=== PATIENT | female | born 1985 | race Caucasian/White ===

== ENCOUNTER → 2020-06-18 08:23 | Outpatient (BNVA) | payer OTHER, SELFPAY | PROVIDERS: PCP Internal Medicine; Visit Provider Dietitian, Registered | DX: Z76.89 Persons encountering health services in other specified circumstances (principal) ==

== ENCOUNTER → 2020-06-28 11:29 | Outpatient (BNVA) | payer OTHER, SELFPAY | PROVIDERS: PCP Internal Medicine; Referring Provider Internal Medicine; Visit Provider Surgery | DX: E66.9 Obesity, unspecified (principal); Z68.36 Body mass index [BMI] 36.0-36.9, adult | CPT/HCPCS: 99214 ==

== ENCOUNTER → 2020-07-28 14:40 | Outpatient (BNVA) | payer OTHER, SELFPAY | PROVIDERS: PCP Plastic Surgery; Visit Provider Physician Assistant | DX: E66.9 Obesity, unspecified (principal); Z68.34 Body mass index [BMI] 34.0-34.9, adult | CPT/HCPCS: 99212 ==

== ENCOUNTER → 2020-08-24 15:57 | Outpatient (BNVA) | payer OTHER, SELFPAY | PROVIDERS: PCP Plastic Surgery; Visit Provider Surgery | DX: Z01.818 Encounter for other preprocedural examination (principal); E66.9 Obesity, unspecified; Z68.34 Body mass index [BMI] 34.0-34.9, adult; R06.02 Shortness of breath | CPT/HCPCS: 99212 ==

== ENCOUNTER 2020-08-27 12:03 | Outpatient (REF) | payer OTHER, SELFPAY ==
[2020-08-27 12:39] LABS: MANUAL DIFF FLAG NO
[2020-08-27 12:44] LABS: Basophils Absolute Auto 0.1 X10*3/uL (0.0-0.2); Basophils Percent Auto 0.5 % (0-2); Eosinophils Absolute Auto 0.1 X10*3/uL (0.0-0.4); Hemoglobin 11.5 g/dl (12.0-16.0); Imm Gran Abs Auto 0.05 X10*3/uL (0.00-0.03); Imm Gran Pct Auto 0.4 % (0.0-0.4); Lymphocytes Absolute Auto 2.5 X10*3/uL (1.2-4.9); Lymphocytes Percent Auto 22.5 % (20-40); Mean Corpuscular HGB Conc 31.9 g/dl (31.0-35.0); Mean Corpuscular Hemoglobin 27.3 pg (27.0-33.0); Mean Corpuscular Volume 85.5 fL (80-98); Mean Platelet Volume 11.8 fL (9.4-12.3); Monocytes Absolute Auto 0.7 X10*3/uL (0.1-1.2); Monocytes Percent Auto 6.3 % (2-11); Neutrophils Absolute Auto 7.8 X10*3/uL (2.0-8.3); Neutrophils Percent Auto 69.3 % (45-73); Platelet Count 290 X10*3/uL (160-400); Red Blood Count 4.21 X10*6/uL (4.20-5.50); Red Cell Distribution Width 14.5 % (11.0-16.0); White Blood Count 11.2 X10*3/uL (4.8-10.8)
[2020-08-27 12:55] LABS: Glucose Urine UA NEG (NEG); Leukocyte Esterase Urine NEG (NEG); Nitrite Urine NEG (NEG); PH 6.5 (5.0-8.0); Urine Blood 3+ (NEG); Urine Ketones NEG (NEG); Urine Protein NEG (NEG-TRACE)
[2020-08-27 12:59] LABS: Appearance Urine CLEAR; Color Urine YELLOW
[2020-08-27 13:10] LABS: Squamous Epithelial Cell Urine 1+ /LPF; WBC Urine 0 /HPF (0-4)
[2020-08-27 13:17] LABS: Albumin Level 4.1 g/dL (3.5-5.0); Anion Gap 14 (12-20); Blood Urea Nitrogen 24 mg/dL (9-16); Calcium 9.4 mg/dL (8.4-10.2); Carbon Dioxide 25 mmol/L (22-29); Chloride 104 mmol/L (96-108); Estimated Glomerular Filt Rate > 60; Glucose Random 78 mg/dL (60-115); Potassium 4.5 mmol/l (3.3-5.1); Sodium 138 mmol/L (135-145)
--- NOTE | 2020-08-27 14:57 | ECG_ITS ---
Test Reason : ROUTINE Blood Pressure : / mmHG Vent. Rate : 060 BPM Atrial Rate : 060 BPM P-R Int : 126 ms QRS Dur : 086 ms QT Int : 398 ms P-R-T Axes : 048 066 028 degrees QTc Int : 398 ms Normal sinus rhythm Normal ECG When compared with ECG of 04-JUN-2020 09:09, No significant change was found Referred By: Katelynn Fountain Electronically Signed By:Jorge Sullivan
== END 2020-08-27 12:04 | disposition home or self-care (01) ==
LOC: HO.LAB 12:03
PROVIDERS: Visit Provider Surgery
DX: R06.02 Shortness of breath (principal)
CPT/HCPCS: 36415; 80048; 81001; 82040; 85025; 93005

== ENCOUNTER 2020-09-01 06:09 | Inpatient (IN) | payer OTHER, SELFPAY ==
[2020-08-25 12:53] VITALS: BMI 34.0
--- NOTE | 2020-08-30 13:36 | P.CONAN_ITS ---
Documented by User: Sarahi Brown 08/30/20 13:39 HPI - Anesthesia Eval Consult details Narrative: 35yo F for Gastrectomy Sleeve PMFSH Past Medical History Medical History Back pain Blind right eye BMI 37.0-37.9, adult Intrauterine contraceptive device Lab test negative for COVID-19 virus Obesity with body mass index (BMI) of 30.0 to 39.9 Sleep apnea Family History Family History Mother Arthritis Father No problems noted. Sister No problems noted. Sister No problems noted. Sister No problems noted. Sister No problems noted. Sister No problems noted. Sister No problems noted. Brother No problems noted. Brother No problems noted. Son No problems noted. Surgical History Surgical History S/P excision of lipoma Social History Social History Are you a primary career technology teacher to a significant other at home: No Do you presently have visiting nurse or other home services: No Alcohol intake: never Smoking Status: Never smoker Use of substances other than those prescribed or required for medical reasons: No Have you been hit, kicked, punched, or otherwise hurt by someone within the past year? If so, by whom?: No Advance Directives Information Provided: No Recently lost weight without trying: No Meds Allergies Allergy/AdvReac Type Severity Reaction Status Date / Time ibuprofen Allergy Mild Hives Verified 08/24/20 16:22 Exam Exam Date and Time: August 30, 2020 1336 Height,Weight and Vital Signs: Height 5 ft 1 in Weight 81.647 kg Pertinent Lab Results Pertinent Lab Results: Laboratory Tests 08/27/20 12:15 Blood Type O Positive Antibody Screen NEGATIVE Laboratory Tests 08/27/20 08/27/20 12:15 12:15 WBC 11.2 H Hgb 11.5 L Hct 36.0 L Plt Count 290 Sodium 138 Potassium 4.5 Chloride 104 Carbon Dioxide 25 BUN 24 H Creatinine 0.74 Estimated GFR > 60 Albumin 4.1 Narrative Narrative: EKG 08/27/20: Normal sinus rhythm Normal ECG Assessment and Plan Assessment Anesthesia Assessment: Chart Reviewed Documented by User: Deborah Cummings 09/01/20 07:08 PMFSH Past Medical History Medical History Back pain Blind right eye BMI 37.0-37.9, adult Intrauterine contraceptive device Lab test negative for COVID-19 virus Obesity with body mass index (BMI) of 30.0 to 39.9 Sleep apnea Family History Family History Mother Arthritis Father No problems noted. Sister No problems noted. Sister No problems noted. Sister No problems noted. Sister No problems noted. Sister No problems noted. Sister No problems noted. Brother No problems noted. Brother No problems noted. Son No problems noted. Surgical History Surgical History S/P excision of lipoma Social History Social History Are you a primary career technology teacher to a significant other at home: No Do you presently have visiting nurse or other home services: No Alcohol intake: never Smoking Status: Never smoker Use of substances other than those prescribed or required for medical reasons: No Have you been hit, kicked, punched, or otherwise hurt by someone within the past year? If so, by whom?: No Advance Directives Information Provided: No Recently lost weight without trying: No Meds Allergies Allergy/AdvReac Type Severity Reaction Status Date / Time ibuprofen Allergy Mild Hives Verified 08/24/20 16:22 Exam Airway Mallampati Class: I TM Dist: >3cm Neck ROM: Full
[2020-09-01] VITALS (21 sets, daily range): BP systolic 93–139; BP diastolic 50–81; PULSE 60–102; RESP 16–18; TEMP 36.1–37.2; O2SAT 95–100
[2020-09-01] MEDS: Lactated Ringers 1,000 ML 100 ML IVCONT (06:41)
[2020-09-01 06:42] LABS: COVID-19 Test Negative (Negative); IDNOW Serial# 9DD0AD1C
--- NOTE | 2020-09-01 07:15 | PC.NURSE ---
voided large amount yellow
--- NOTE | 2020-09-01 07:44 | MHC.SHP ---
Pre-Procedural Eval Section B Chief Complaint: Severe Morbid Obesity Allergies: Allergies Allergy/AdvReac Type Severity Reaction Status Date / Time ibuprofen Allergy Mild Hives Verified 08/24/20 16:22 Plan I have reviewed the history and physical and performed a pertinent physical examination on my patient. No changes have occurred unless specified.
--- NOTE | 2020-09-01 09:08 | PM.OP ---
Brief Operative Note Date of Service: 09/01/20 Pre-op diagnosis: Obesity BMI 34.1 Post-op diagnosis: other (Same and hiatal hernia) Procedure: Laparoscopic sleeve gastrectomy, hiatal hernia repair, Audrey block, and intraoperative endoscopy Implants: Covidien harshad Surgeon: Katelynn Fountain MD Anesthesia: GETA Insole Reinforcer: Thelma Alfonso Estimated blood loss (mL): 10 Pathology: other (Partial gastrectomy) Condition: stable Disposition: PACU
--- NOTE | 2020-09-01 09:17 | P.OP_ITS ---
Operative Note Operative Note Date of Service: 09/01/20 Narrative: Patient was brought into the operating room and placed on the operating room table in the supine position. General anesthesia was induced. Normal DVT prophylaxis was instituted and the patient received 2 grams of cefotetan preoperatively. The abdomen was then prepped and draped in the normal sterile fashion. A safety time-out was performed. A mixture of 1% lidocaine with epinephrine and ??% Marcaine plain was used to a nesthetize the planned incision site in the left upper quadrant. A #11 scalpel was used to make a 5 mm left upper quadrant transverse incision through which a veress needle was placed. Three pops were heard going through the fascia. A saline drop test was used to confirm that the veress needle was intraabdominal. An optiview technique was then used to place a 5mm port in the left upper quadrant. A 5 mm 30 degree laproscope was then placed through this port and the abdominal cavity was surveyed and was normal. The patient was placed in reverse Trendelenburg positioning. A debra liver retractor was then placed in the subxyphoid position and it was used to hold up the left lobe of the liver to the abdominal wall. This was secured to the bed using the liver retractor oliveira. A IRENE block was then performed for pain control on the right side of the abdomen. A 5 mm port was placed in the right upper quadrant near the falciform ligament. A 12 mm port was then placed in the mid epigastrium. One additional 5 mm port was placed in the left upper quadrant just to the left of the placement of the first port. I then performed a IRENE block on the left side of the abdomen. I then removed the epigastric fat pad; there was an about 3 cm anterior hiatal hernia noted. I reapproximated the left and right crura with a total of 2 stitches of 2-0 ethibond and a laparoscopic knot pusher. There was no residual hiatal hernia. I then opened up the angle of His. We then gained entry into the lesser sac about 4-5 cm from the pylorus. I had anesthesia place a 34 [place] orogastric tube into the distal antrum to use as a sizing tool for gastric pouch size. I divided the short gastric vessels up to the angle of His. We then started the creation of the gastric pouch by firing a 60 mm purple load en dostapler up the stomach about 4-5 cm from the pylorus. We completed the creation of the gastric pouch using a total of 4 firings of a 60 mm purple load stapler. We had anesthesia remove the orogastric tube, then we clamped across the distal antrum using a fired 60 mm endostapler. We flattened the patient and then instilled normal saline surrounding the newly created staple line. I then performed an on-table endoscopy. I passed the gastroscopy into the posterior oropharynx and down the esophagus evaluating the esophageal mucosa which was normal. There was no evidence of hiatal hernia. I passed the gastroscope into the gastric pouch and insufflated the gastric pouch. There was healthy pink mucosa and no evidence of active bleeding. There was no evidence of leak on laparoscopy. I desufflated the gastric pouch and removed the endoscope. I removed the endostapler from the abdomen and suctioned the fluid from the left upper quadrant. I then removed the partial gastrectomy specimen through the epigastric 12 mm port site. I reapproximated the 12 mm port using a 0 maxon suture with a laparoscopic suture passer. I instilled local anesthetic into the fascial closure site and tied the suture down at a pressure of 8-10 mm of Hg. There was no residual fascial defect. We removed the liver retractor and the left upper quadrant 5 mm ports under direct visualization. There was no evidence of any active bleeding. I desufflated the abdomen through the last remaining port and removed the laparoscope and 5 mm port. We reapproximated all incisions with a 4-0 monocryl subcuticular stitch. We cleaned and dried the abdominal skin and applied dermabond skin glue. All count were correct at the end of the case. The patient was awake and in stable condition prior to extubation and transfer to the recovery room.
[2020-09-01] MEDS: fentaNYL citrate/PF 100 MCG/2 ML VIAL 50 MCG IVPUSH (09:35)
[2020-09-01] MEDS: ondansetron HCL 4 MG/2 ML VIAL IVPUSH ×2 (09:37→17:21)
[2020-09-01] MEDS: Famotidine/PF 20 MG/2 ML VIAL IVPUSH ×2 (09:44→20:35)
[2020-09-01] MEDS: Lactated Ringers 1,000 ML 125 ML IVCONT ×2 (10:17→17:25)
[2020-09-01] MEDS: HYDROmorphone HCl 0.5 MG/0.5 ML SYRINGE 0.25 MG IVPUSH (11:03)
[2020-09-01 13:14] LABS: Basophils Percent Auto 0.1 % (0-2); Hematocrit 35.7 % (37-47); Hemoglobin 11.8 g/dl (12.0-16.0); Imm Gran Abs Auto 0.07 X10*3/uL (0.00-0.03); Imm Gran Pct Auto 0.5 % (0.0-0.4); Lymphocytes Absolute Auto 0.5 X10*3/uL (1.2-4.9); Lymphocytes Percent Auto 3.6 % (20-40); MANUAL DIFF FLAG SCAN; Mean Corpuscular HGB Conc 33.1 g/dl (31.0-35.0); Mean Corpuscular Hemoglobin 28.4 pg (27.0-33.0); Mean Corpuscular Volume 85.8 fL (80-98); Mean Platelet Volume 11.6 fL (9.4-12.3); Monocytes Absolute Auto 0.1 X10*3/uL (0.1-1.2); Monocytes Percent Auto 0.5 % (2-11); Neutrophils Percent Auto 95.3 % (45-73); Platelet Count 286 X10*3/uL (160-400); Red Blood Count 4.16 X10*6/uL (4.20-5.50); Red Cell Distribution Width 14.5 % (11.0-16.0); SCAN SMEAR FLAG 1; White Blood Count 14.7 X10*3/uL (4.8-10.8)
--- NOTE | 2020-09-01 13:34 | P.DS_ITS ---
DS: Providers Provider Date of admission: 09/01/20 06:09 Primary care physician: Unknown Physician DS: Medications Discharge Medications Home Medications: Previous Rx's Medication Instructions Recorded acetaminophen 500 mg tablet 1,000 mg PO Q6H PRN #30 tab 08/24/20 docusate sodium 100 mg capsule 100 mg PO BID #30 cap 08/24/20 famotidine 20 mg tablet 20 mg PO DAILY #30 tab 08/24/20 ondansetron HCl 4 mg tablet 4 mg PO Q6H PRN #30 tab 08/24/20 simethicone 80 mg chewable tablet 80 mg PO TID-QID PRN #30 tab 08/24/20 DS: Summary Time Spent with Patient Time attestation: DATE OF SERVICE: September 01, 2020 ADMITTING DIAGNOSES: morbid obestiy, hiatal hernia DISCHARGE DIAGNOSES: as above, s/p laparoscopic sleeve gastrectomy and hiatal hernia repair PROCEDURE PERFORMED: laparoscopic sleeve gastrectomy and hiatal hernia repair DISCHARGE MEDICATIONS: 1. Simethicone 80mg q4h prn gas 2. Ondansetron 4mg po tid prn nausea 3. Famotidine 20mg po bid 4. Docusate sodium 100mg po bid DISCHARGE INSTRUCTIONS: The patient should continue on the stage III bariatric diet, which includes 3 protein shakes of at least 20- 30g of protein on a daily basis. The patient was encouraged to avoid drinking liquids with her protein shakes. She should wait 30-45 minutes in between her meals and drinking water. She should drink at least 40-60 ounces of water on a daily basis. She should ambulate while at home to avoid any blood clots in her lower extremities. She should call with any questions or concerns such as increase in abdominal pain, persistent nausea, vomiting, redness and drainage from her incisions, fever, chills, shortness of breast, or chest pain beyond what is normal for her. The patient should avoid all heavy lifting greater than 5 pounds for the next 4 weeks. The patient is already scheduled to follow up with me in 2 weeks' time, but should call the office with any questions prior to that follow up appointment. The patient should not advance her diet until she is seen in the office for the 2 week appointment. HOSPITAL COURSE: The patient was admitted after undergoing laparoscopic sleeve gastrectomy. She was started on stage II diet and was tolerating well without nausea or vomiting. Her pain was controlled on IV Dilaudid. All labs were within normal limits. On post-operative day #2 she was feeling better, nausea and epigastric pain improved and she was tolerating stage III bariatric diet well. She was discharged home. DISCHARGE DISPOSITION: Home.Total time spent providing and/or coordinating discharge services: Physical Exam Vital Signs: Vital Signs: Last Vital Signs Temp 97.2 F 09/01/20 12:00 Pulse 67 09/01/20 12:00 Resp 17 09/01/20 12:00 BP 133/72 09/01/20 12:00 Pulse Ox 100 09/01/20 12:00 Body Mass Index 34.0 DS: Data Data Completed and Pending Pending studies at discharge: Pending at discharge 09/01/20 08:47 Surgical [PTH] Routine Labs on day of discharge: 08/27/20 12:15 Type and Screen Routine 09/01/20 06:03 Acetaminophen [Ofirmev] 1,000 mg in 100 ml IV PREOP cefoTEtan disod/Dextrose,Iso [Cefotan] 2 gm in 50 ml IV PREOP 09/01/20 06:10 COVID-19 ID NOW ([facility]) Stat 09/01/20 06:15 Lactated Ringers [Lr] 1,000 ml IVCONT 100 mls/hr 09/01/20 06:27 cefoTEtan disodium [Cefotan] 2 gm .ROUTE .STK-MED ONE 09/01/20 06:28 Acetaminophen [Ofirmev] 1,000 mg in 100 ml IV As directed 09/01/20 07:04 Bupivacaine MPF 0.25 % [Sensorcaine-MPF 0.25% 10 ML] 10 ml .ROUTE .STK-MED ONE Lidocaine HCl 1%/Epi 1:100,000 [Xylocaine 1 %-Epi 1:100,000] 20 ml .ROUTE .STK-MED ONE 09/01/20 07:09 fentaNYL citrate/PF [Sublimaze] 50 mcg IVPUSH Q5M PRN ondansetron HCL [Zofran] 4 mg IVPUSH ONCE PRN 09/01/20 07:14 Lidocaine HCl 2 % MPF [Xylocaine 2 % MPF] 5 ml .ROUTE .STK-MED ONE Rocuronium Anthony [Zemuron] 100 mg IV .STK-MED ONE dexAMETHasone sod phosphate [Decadron] 4 mg .ROUTE .STK-MED ONE ondansetron HCL [Zofran] 4 mg .ROUTE .STK-MED ONE propofoL [Diprivan] 200 mg IVPUSH .STK-MED ONE 09/01/20 07:15 HYDROmorphone HCl [Dilaudid] 2 mg .ROUTE .STK-MED ONE Ketamine HCl/NS 50 mg IVPUSH .STK-MED ONE Lactated Ringers [Lr] 1,000 ml IVCONT 100 mls/hr Midazolam HCl/PF [Versed] 2 mg .ROUTE .STK-MED ONE fentaNYL citrate/PF [Sublimaze] 50 mcg .ROUTE .STK-MED ONE 09/01/20 08:33 Sugammadex Sodium [Bridion] 200 mg IVPUSH .STK-MED ONE 09/01/20 09:11 Transfer Order Routine 09/01/20 09:32 fentaNYL citrate/PF [Sublimaze] 100 mcg .ROUTE .STK-MED ONE 09/01/20 09:33 Famotidine/PF [Pepcid/PF] 20 mg IVPUSH .STK-MED ONE 09/01/20 09:34 ondansetron HCL [Zofran] 4 mg .ROUTE .STK-MED ONE 09/01/20 10:58 HYDROmorphone HCl [Dilaudid] 0.5 mg .ROUTE .STK-MED ONE Laboratory Last Values COVID-19 ([facility]) Negative (Negative) 09/01/20 06:10 COVID-19 Clin Com See Note 09/01/20 06:10 Blood Type O Positive 08/27/20 12:15 Antibody Screen NEGATIVE 08/27/20 12:15 Discharge Plan Discharge Anticipated Discharge Date/Time: 09/02/20 11:00 Patient Disposition: Home, Self-Care Referrals: Physician,Unknown [Primary Care Provider] - Discharge Medications: Continued acetaminophen [Tylenol Extra Strength] 500 mg tablet 1,000 mg PO Q6H PRN (Reason: pain) Qty: 30 RF: 1 docusate sodium [Colace] 100 mg capsule 100 mg PO BID Qty: 30 RF: 1 famotidine [Pepcid AC] 20 mg tablet 20 mg PO DAILY Qty: 30 RF: 1 ondansetron HCl [Zofran] 4 mg tablet 4 mg PO Q6H PRN (Reason: nausea and vomiting) Qty: 30 RF: 1 simethicone [Gas Relief (simethicone)] 80 mg tablet,chewable 80 mg PO TID-QID PRN (Reason: abdominal distention) Qty: 30 RF: 1 Activity on Discharge: No heavy lifting Activity Restrictions/Additional Instructions: No tub baths, sex or returning to work until discussed at first post op appointment. No exercise, alcohol, tobacco or illegal drug use. Continue to use incentive spirometer hourly while awake. Walk in home for 5- 10 minutes every 2 hours during the first week. Continue phase 3 diet until first post op appointment. Follow all instructions in the bariatric handbook and call with any questions.Discharge Instructions 1. Please call your doctor or come back to the emergency room should any new symptoms arise. 2. You will receive a courtesy call from [facility] 24-48 hours after discharge. 3. Activity: abstain from alcohol, practice limited stair climbing, no bending, no driving, no exercise, no illicit substances, no lifting, no sex, no tub bath, no work. 4. Diet: continue stage 3 protein shakes until your [address] Fountain. 5. Dressing Change/Wound Care: Your incision is covered by surgical glue. If the area is tender, you may apply an ice pack for short intervals (no more than 20 minutes on, followed by at least 20 minutes off). Do not apply heat. Do not use creams, lotions, or topical antibiotics unless instructed to do so by your surgeon. These can cause infection or allergic reaction. 6. Call your doctor if: - Your temperature exceeds 101.5 F - You experience excessive pain or swelling - You have an unexpected reaction to medication - You have excessive bleeding - You experience continued vomiting/nausea - Your incision begins to separate - Your incision shows signs of infection such as increased redness, swelling, excessive pain, heat, or drainage (light blood or clear fluid is normal) 7. General instructions: No lifting greater than 5 lbs for the next 4 weeks[address] within 24 hours of taking narcotic pain medications. If you do not move your bowels in the next 2 days, please take milk of magnesia over the counter. Please follow the post op diet and do not advance your diet until you are seen in the office in about 2 weeks. Please walk around your home every hour or two to prevent blood clots from forming in your legs. You do not need to wake from sleeping to walk. Please sleep in a bed or couch to prevent kinking at the hips and knees. Please take your incentive spirometer (your lung sweeper cleaner industrial) home with you and use it for the next few days to prevent pneumonias. You may shower, no hot tubs, baths or swimming pools. Please call the office with any questions or concerns such as increasing abdominal pain, fever, chills, shortness of breath, chest pain, leg pain or swelling, or redness or drainage from your incisions. Please stay on stage 3 diet which includes sugar free clear liquids such as ice pops and jello and broth and crystal light. Avoid all carbonation. Please drink 3 protein shakes with at least 25-30 grams of protein daily or 3 of the Celebrate 4:1 shakes which can be purchased in our office. The Celebrate shakes have all of the bariatric vitamins you need if you consume these shakes. If you are drinking other protein shakes, you will need to purchase the Celebrate multivitamins and calcium that we provide in the office (they will provide all the vitamins you need). Please make sure you are consuming at least 40-60 ounces of water in addition to your 3 protein shakes daily. Do not hesitate to contact the office with any questions at . Visit Report Forms: Patient Portal Discharge page Care Plan Goals: weight loss Health Concerns: obesity Plan of Treatment: see discharge instructions
[2020-09-01 13:38] LABS: Anion Gap 13 (12-20); Blood Urea Nitrogen 11 mg/dL (9-16); Calcium 8.3 mg/dL (8.4-10.2); Carbon Dioxide 25 mmol/L (22-29); Chloride 102 mmol/L (96-108); Estimated Glomerular Filt Rate > 60; Glucose Random 134 mg/dL (60-115); Potassium 3.9 mmol/l (3.3-5.1); Sodium 136 mmol/L (135-145)
[2020-09-01 13:59] LABS: SLIDE REVIEW VERIFIED
[2020-09-01] MEDS: Metoclopramide HCl 10 MG/2 ML VIAL IVPUSH ×2 (14:54→22:13)
[2020-09-01] MEDS: cefoTEtan disodium 2 GM in 0.9 % Sodium Chloride 50 ML IV (20:35)
[2020-09-01] MEDS: 0.9 % Sodium Chloride Flush 3 ML SYRINGE IVFLUSH (20:35)
[2020-09-02] MEDS: ondansetron HCL 4 MG/2 ML VIAL IVPUSH ×2 (01:20→09:06)
[2020-09-02] MEDS: Lactated Ringers 1,000 ML 125 ML IVCONT (01:20)
[2020-09-02 03:48] VITALS: BP 114/62; PULSE 62; RESP 16; TEMP 37.2; O2SAT 99
[2020-09-02 04:36] LABS: MANUAL DIFF FLAG NO
[2020-09-02 04:37] LABS: Basophils Percent Auto 0.2 % (0-2); Hematocrit 33.8 % (37-47); Hemoglobin 10.8 g/dl (12.0-16.0); Imm Gran Abs Auto 0.07 X10*3/uL (0.00-0.03); Imm Gran Pct Auto 0.4 % (0.0-0.4); Lymphocytes Absolute Auto 2.7 X10*3/uL (1.2-4.9); Lymphocytes Percent Auto 14.7 % (20-40); Mean Corpuscular Hemoglobin 27.5 pg (27.0-33.0); Mean Platelet Volume 11.4 fL (9.4-12.3); Monocytes Absolute Auto 1.2 X10*3/uL (0.1-1.2); Monocytes Percent Auto 6.6 % (2-11); Neutrophils Absolute Auto 14.1 X10*3/uL (2.0-8.3); Neutrophils Percent Auto 78.1 % (45-73); Platelet Count 266 X10*3/uL (160-400); Red Blood Count 3.93 X10*6/uL (4.20-5.50); Red Cell Distribution Width 14.4 % (11.0-16.0); White Blood Count 18.1 X10*3/uL (4.8-10.8)
[2020-09-02 05:04] LABS: Anion Gap 13 (12-20); Blood Urea Nitrogen 7 mg/dL (9-16); Calcium 8.5 mg/dL (8.4-10.2); Carbon Dioxide 23 mmol/L (22-29); Chloride 104 mmol/L (96-108); Creatinine Clr Calc Pharmacy 107.6; Estimated Glomerular Filt Rate > 60; Glucose Random 85 mg/dL (60-115); Sodium 136 mmol/L (135-145)
[2020-09-02 08:00] VITALS: BP 123/66; PULSE 59; RESP 20; TEMP 36.9; O2SAT 99
--- NOTE | 2020-09-02 08:42 | PM.PNGS ---
Subjective Subjective Date of Service: 09/02/20 Interval history: Pt states gas pain and mid abdominal pain this am, no emesis, some nausea. Wasn't able to drink much last pm, has just started sippping water at 8 am. OOB ambulating. Has not used incentive spirometer yet, but it is at her bedside. She is planning on purchasing Celbrate 4:1 today and start 2 shakes per day. Physical Exam Vital Signs: Vital Signs: Last Vital Signs Temp 98.4 F 09/02/20 08:00 Pulse 59 09/02/20 08:00 Resp 20 09/02/20 08:00 BP 123/66 09/02/20 08:00 Pulse Ox 99 09/02/20 08:00 Body Mass Index 34.0 Const: Other: Pt appears to be experiencing intermittent mid abdominal pain General: cooperative, alert and awake Nutritional Appearance: obese Orientation/consciousness: patient oriented x3 Limitations: No altered mental status Resp: Other: Pt was taught to use ICS and is able to inhale to 1500 ml Effort & Inspection: normal respiratory effort, no audible wheezes, no cough and respiratory effort not decreased GI: Inspection: Yes normal to inspection, No distended, Yes incision (all incisions clean, dry and intact with surgical glue), Yes obesity and No visible herniation Palpation (GI): Soft to palpation, Tenderness to palpation present (GI) (diffuse mild tenderness), no guarding and not rigid Neuro: General: patient oriented x3 Extrem: General: Yes no pedal edema and No calf tenderness Progress Note: A&P Assessment and plan (1) Body mass index (BMI) of 36.0 to 36.9 in adult: Status: Acute (2) History of sleeve gastrectomy: Problem details: Pt is POD #1 s/p LSG, overall doing well. Is experiencing some gas pain this am and limited po intake. She will need to demonstrate better poi intake before anticipated discharge home this am. 2 4:1 shakes today mixed with 1% milk and minimumof 40 oz's total flid intake. Will continue ICS x 10 hourly and ambulate q 2h. We discussed her picking up 4:1 shakes form the gift shop this am. Labs this am 0 h/h - 10.8/33.8, WBC 18.1k, 78% neutrophils, all resultss expected POD #1. Will discuss discharge with Dr Fountain, attending surgeon. Status: Acute (3) History of repair of hiatal hernia: Problem details: Follow all instructions for bariatric surgery. Status: Acute Fall Risk Details Current Medications: Current Medications Generic Name Dose Route Start Last Admin Trade Name Freq PRN Reason Stop Dose Admin Famotidine 20 mg 09/01/20 09:15 09/01/20 20:35 Famotidine/Pf 20 Mg/2 Ml Vial IVPUSH 20 mg BID CAR Administration Hydromorphone HCl 0.25 mg 09/01/20 09:12 09/01/20 11:03 Hydromorphone Hcl 0.5 Mg/0.5 Ml Syringe IVPUSH 0.25 mg Q4H PRN Administration Pain, Moderate (Pain Scale 4-6 Lactated Ringer's 1,000 mls @ 125 mls/hr 09/01/20 09:15 09/02/20 01:20 Lr IVCONT 125 mls/hr .Q8H CAR Administration Acetaminophen 1,000 mg in 100 mls @ 16.7 mls/hr 09/01/20 09:15 09/02/20 08:41 Ofirmev IV Infused .Q6H CAR Infusion Metoclopramide HCl 10 mg 09/01/20 09:12 09/01/20 22:13 Metoclopramide Hcl 10 Mg/2 Ml Vial IVPUSH 10 mg Q6H PRN Administration Nausea Ondansetron HCl 4 mg 09/01/20 09:15 09/02/20 01:20 Ondansetron Hcl 4 Mg/2 Ml Vial IVPUSH 4 mg Q8H CAR Administration Sodium Chloride 3 ml 09/01/20 16:00 09/02/20 07:11 0.9 % Sodium Chloride Flush 3 Ml Syringe IVFLUSH Not Given QSHIFT CAR Time Spent With Patient Time: Total time spent is greater than 50% in coordination of care (as documented) at patient's floor/unit and/or counseling patient: Time with patient: 25 - 35 minutes
--- NOTE | 2020-09-02 08:54 | PM.DS ---
DS: Providers Provider Date of admission: 09/01/20 06:09 Primary care physician: Unknown Physician DS: Diagnosis Discharge Diagnosis (1) Body mass index (BMI) of 36.0 to 36.9 in adult: Status: Acute (2) History of sleeve gastrectomy: Status: Acute Problem details: Pt is POD #1 s/p LSG, overall doing well. Is experiencing some gas pain this am and limited po intake. She will need to demonstrate better poi intake before anticipated discharge home this am. 2 4:1 shakes today mixed with 1% milk and minimumof 40 oz's total flid intake. Will continue ICS x 10 hourly and ambulate q 2h. We discussed her picking up 4:1 shakes form the gift shop this am. Labs this am 0 h/h - 10.8/33.8, WBC 18.1k, 78% neutrophils, all resultss expected POD #1. Will discuss discharge with Dr Fountain, attending surgeon. (3) History of repair of hiatal hernia: Status: Acute Problem details: Follow all instructions for bariatric surgery. DS: Medications Discharge Medications Home Medications: Previous Rx's Medication Instructions Recorded acetaminophen 500 mg tablet 1,000 mg PO Q6H PRN #30 tab 08/24/20 docusate sodium 100 mg capsule 100 mg PO BID #30 cap 08/24/20 famotidine 20 mg tablet 20 mg PO DAILY #30 tab 08/24/20 ondansetron HCl 4 mg tablet 4 mg PO Q6H PRN #30 tab 08/24/20 simethicone 80 mg chewable tablet 80 mg PO TID-QID PRN #30 tab 08/24/20 DS: Summary Time Spent with Patient Time attestation: DATE OF SERVICE: 09/01/20 ADMITTING DIAGNOSES: obesity and hiatal hernia DISCHARGE DIAGNOSES: same PROCEDURE PERFORMED: s/p laparoscopic sleeve gastrectomy and hiatal hernia repair DISCHARGE MEDICATIONS: 1. Simethicone 80mg q4h prn gas 2. Ondansetron 4mg po tid prn nausea 3. Famotidine 20mg po bid 4. Docusate sodium 100mg po bid DISCHARGE INSTRUCTIONS: The patient should continue on the stage III bariatric diet, which includes 3 protein shakes of at least 20- 30g of protein on a daily basis. The patient was encouraged to avoid drinking liquids with her protein shakes. She should wait 30-45 minutes in between her meals and drinking water. She should drink at least 40-60 ounces of water on a daily basis. She should ambulate while at home to avoid any blood clots in her lower extremities. She should call with any questions or concerns such as increase in abdominal pain, persistent nausea, vomiting, redness and drainage from her incisions, fever, chills, shortness of breast, or chest pain beyond what is normal for her. The patient should avoid all heavy lifting greater than 5 pounds for the next 4 weeks. The patient is already scheduled to follow up with me in 2 weeks' time, but should call the office with any questions prior to that follow up appointment. The patient should not advance her diet until she is seen in the office for the 2 week appointment. HOSPITAL COURSE: The patient was admitted after undergoing laparoscopic sleeve gastrectomy. She was started on stage II diet and was tolerating well without nausea or vomiting. Her pain was controlled on IV Dilaudid. All labs were within normal limits. On post-operative day #2 she was feeling better, nausea and epigastric pain improved and she was tolerating stage III bariatric diet well. She was discharged home. DISCHARGE DISPOSITION: Home.Total time spent providing and/or coordinating discharge services: Physical Exam Vital Signs: Vital Signs: Last Vital Signs Temp 98.4 F 09/02/20 08:00 Pulse 59 09/02/20 08:00 Resp 20 09/02/20 08:00 BP 123/66 09/02/20 08:00 Pulse Ox 99 09/02/20 08:00 Body Mass Index 34.0 DS: Data Data Completed and Pending Pending studies at discharge: Pending at discharge 09/01/20 08:47 Surgical [PTH] Routine Labs on day of discharge: 08/27/20 12:15 Type and Screen Routine 09/01/20 06:03 Acetaminophen [Ofirmev] 1,000 mg in 100 ml IV PREOP cefoTEtan disod/Dextrose,Iso [Cefotan] 2 gm in 50 ml IV PREOP 09/01/20 06:10 COVID-19 ID NOW ([facility]) Stat 09/01/20 06:15 Lactated Ringers [Lr] 1,000 ml IVCONT 100 mls/hr 09/01/20 06:27 cefoTEtan disodium [Cefotan] 2 gm .ROUTE .STK-MED ONE 09/01/20 06:28 Acetaminophen [Ofirmev] 1,000 mg in 100 ml IV As directed 09/01/20 07:04 Bupivacaine MPF 0.25 % [Sensorcaine-MPF 0.25% 10 ML] 10 ml .ROUTE .STK-MED ONE Lidocaine HCl 1%/Epi 1:100,000 [Xylocaine 1 %-Epi 1:100,000] 20 ml .ROUTE .STK-MED ONE 09/01/20 07:09 fentaNYL citrate/PF [Sublimaze] 50 mcg IVPUSH Q5M PRN ondansetron HCL [Zofran] 4 mg IVPUSH ONCE PRN 09/01/20 07:14 Lidocaine HCl 2 % MPF [Xylocaine 2 % MPF] 5 ml .ROUTE .STK-MED ONE Rocuronium [place] [Zemuron] 100 mg IV .STK-MED ONE dexAMETHasone sod phosphate [Decadron] 4 mg .ROUTE .STK-MED ONE ondansetron HCL [Zofran] 4 mg .ROUTE .STK-MED ONE propofoL [Diprivan] 200 mg IVPUSH .STK-MED ONE 09/01/20 07:15 HYDROmorphone HCl [Dilaudid] 2 mg .ROUTE .STK-MED ONE Ketamine HCl/NS 50 mg IVPUSH .STK-MED ONE Lactated Ringers [Lr] 1,000 ml IVCONT 100 mls/hr Midazolam HCl/PF [Versed] 2 mg .ROUTE .STK-MED ONE fentaNYL citrate/PF [Sublimaze] 50 mcg .ROUTE .STK-MED ONE 09/01/20 08:33 Sugammadex Sodium [[place]ridion] 200 mg IVPUSH .STK-MED ONE 09/01/20 09:11 Transfer Order Routine 09/01/20 09:32 fentaNYL citrate/PF [Sublimaze] 100 mcg .ROUTE .STK-MED ONE 09/01/20 09:33 Famotidine/PF [Pepcid/PF] 20 mg IVPUSH .STK-MED ONE 09/01/20 09:34 ondansetron HCL [Zofran] 4 mg .ROUTE .STK-MED ONE 09/01/20 10:58 HYDROmorphone HCl [Dilaudid] 0.5 mg .ROUTE .STK-MED ONE 09/01/20 12:50 Basic Metabolic Panel DAILY@0500 Complete Blood Count Auto Diff DAILY@0500 SLIDE REVIEW Routine 09/01/20 20:15 cefoTEtan disodium [Cefotan] 2 gm 0.9 % Sodium Chloride [Ns] 50 ml IV ONCE 09/01/20 20:28 cefoTEtan disodium [Cefotan] 2 gm .ROUTE .STK-MED ONE 09/02/20 04:23 Basic Metabolic Panel DAILY@0500 Complete Blood Count Auto Diff DAILY@0500 Laboratory Last Values WBC 18.1 X10*3/uL (4.8-10.8) H 09/02/20 04:23 RBC 3.93 X10*6/uL (4.20-5.50) L 09/02/20 04:23 Hgb 10.8 g/dl (12.0-16.0) L 09/02/20 04:23 Hct 33.8 % (37-47) L 09/02/20 04:23 MCV 86.0 fL (80-98) 09/02/20 04:23 MCH 27.5 pg (27.0-33.0) 09/02/20 04:23 MCHC 32.0 g/dl (31.0-35.0) 09/02/20 04:23 RDW 14.4 % (11.0-16.0) 09/02/20 04:23 Plt Count 266 X10*3/uL (160-400) 09/02/20 04:23 MPV 11.4 fL (9.4-12.3) 09/02/20 04:23 Immature Gran % (Auto) 0.4 % (0.0-0.4) 09/02/20 04:23 Neut % (Auto) 78.1 % (45-73) H 09/02/20 04:23 Lymph % (Auto) 14.7 % (20-40) L 09/02/20 04:23 [place] % (Auto) 6.6 % (2-11) 09/02/20 04:23 Eos % (Auto) 0.0 % (0-4) 09/02/20 04:23 Baso % (Auto) 0.2 % (0-2) 09/02/20 04:23 Lymph # (Auto) 2.7 X10*3/uL (1.2-4.9) 09/02/20 04:23 [place] # (Auto) 1.2 X10*3/uL (0.1-1.2) 09/02/20 04:23 Eos # (Auto) 0.0 X10*3/uL (0.0-0.4) 09/02/20 04:23 Baso # (Auto) 0.0 X10*3/uL (0.0-0.2) 09/02/20 04:23 Abs Immat Gran (auto) 0.07 X10*3/uL (0.00-0.03) H 09/02/20 04:23 Absolute Neuts (auto) 14.1 X10*3/uL (2.0-8.3) H 09/02/20 04:23 Absolute Nucleated RBC 0.000 X10*3/uL (0.0-0.012) 09/02/20 04:23 Nucleated RBC % (auto) 0.0 /100WBC (0.0-0.2) 09/02/20 04:23 Smear Tech's Comments VERIFIED 09/01/20 12:50 Sodium 136 mmol/L (135-145) 09/02/20 04:23 Potassium 4.0 mmol/l (3.3-5.1) 09/02/20 04:23 Chloride 104 mmol/L (96-108) 09/02/20 04:23 Carbon Dioxide 23 mmol/L (22-29) 09/02/20 04:23 Anion Gap 13 (-20) 09/02/20 04:23 BUN 7 mg/dL (9-16) L 09/02/20 04:23 Creatinine 0.72 mg/dL (0.5-1.4) 09/02/20 04:23 Estim Creat Clear Calc 107.6 09/02/20 04:23 Estimated GFR > 60 09/02/20 04:23 Random Glucose 85 mg/dL (60-115) D 09/02/20 04:23 Calcium 8.5 mg/dL (8.4-10.2) 09/02/20 04:23 COVID-19 (FRED) Negative (Negative) 09/01/20 06:10 COVID-19 Clin Com See Note 09/01/20 06:10 Blood Type O Positive 08/27/20 12:15 Antibody Screen NEGATIVE 08/27/20 12:15 Discharge Plan Discharge Anticipated Discharge Date/Time: 09/02/20 11:00 Patient Disposition: Home, Self-Care Referrals: Physician,Unknown [Primary Care Provider] - Discharge Medications: Continued acetaminophen [Tylenol Extra Strength] 500 mg tablet 1,000 mg PO Q6H PRN (Reason: pain) Qty: 30 RF: 1 docusate sodium [Colace] 100 mg capsule 100 mg PO BID Qty: 30 RF: 1 famotidine [Pepcid AC] 20 mg tablet 20 mg PO DAILY Qty: 30 RF: 1 ondansetron HCl [Zofran] 4 mg tablet 4 mg PO Q6H PRN (Reason: nausea and vomiting) Qty: 30 RF: 1 simethicone [Gas Relief (simethicone)] 80 mg tablet,chewable 80 mg PO TID-QID PRN (Reason: abdominal distention) Qty: 30 RF: 1 Activity on Discharge: No heavy lifting Activity Restrictions/Additional Instructions: No tub baths, sex or returning to work until discussed at first post op appointment. No exercise, alcohol, tobacco or illegal drug use. Continue to use incentive spirometer hourly while awake. Walk in home for 5- 10 minutes every 2 hours during the first week. Continue phase 3 diet until first post op appointment. Follow all instructions in the bariatric handbook and call with any questions.Discharge Instructions 1. Please call your doctor or come back to the emergency room should any new symptoms arise. 2. You will receive a courtesy call from [facility] 24-48 hours after discharge. 3. Activity: abstain from alcohol, practice limited stair climbing, no bending, no driving, no exercise, no illicit substances, no lifting, no sex, no tub bath, no work. 4. Diet: continue stage 3 protein shakes until your [address] Fountain. 5. Dressing Change/Wound Care: Your incision is covered by surgical glue. If the area is tender, you may apply an ice pack for short intervals (no more than 20 minutes on, followed by at least 20 minutes off). Do not apply heat. Do not use creams, lotions, or topical antibiotics unless instructed to do so by your surgeon. These can cause infection or allergic reaction. 6. Call your doctor if: - Your temperature exceeds 101.5 F - You experience excessive pain or swelling - You have an unexpected reaction to medication - You have excessive bleeding - You experience continued vomiting/nausea - Your incision begins to separate - Your incision shows signs of infection such as increased redness, swelling, excessive pain, heat, or drainage (light blood or clear fluid is normal) 7. General instructions: No lifting greater than 5 lbs for the next 4 [address] within 24 hours of taking narcotic pain medications. If you do not move your bowels in the next 2 days, please take milk of magnesia over the counter. Please follow the post op diet and do not advance your diet until you are seen in the office in about 2 weeks. Please walk around your home every hour or two to prevent blood clots from forming in your legs. You do not need to wake from sleeping to walk. Please sleep in a bed or couch to prevent kinking at the hips and knees. Please take your incentive spirometer (your lung snow removal/plowing) home with you and use it for the next few days to prevent pneumonias. You may shower, no hot tubs, baths or swimming pools. Please call the office with any questions or concerns such as increasing abdominal pain, fever, chills, shortness of breath, chest pain, leg pain or swelling, or redness or drainage from your incisions. Please stay on stage 3 diet which includes sugar free clear liquids such as ice pops and jello and broth and crystal light. Avoid all carbonation. Please drink 3 protein shakes with at least 25-30 grams of protein daily or 3 of the Celebrate 4:1 shakes which can be purchased in our office. The Celebrate shakes have all of the bariatric vitamins you need if you consume these shakes. If you are drinking other protein shakes, you will need to purchase the Celebrate multivitamins and calcium that we provide in the office (they will provide all the vitamins you need). Please make sure you are consuming at least 40-60 ounces of water in addition to your 3 protein shakes daily. Do not hesitate to contact the office with any questions at . Visit Report Forms: Patient Portal Discharge page Care Plan Goals: weight loss Health Concerns: obesity Plan of Treatment: see discharge instructions
[2020-09-02] MEDS: Famotidine/PF 20 MG/2 ML VIAL IVPUSH (09:05)
--- NOTE | 2020-09-02 09:55 | HO.POSTANES ---
Post Anesthesia Evaluation Post Anesthesia Evaluation Vital Signs: Vital Signs Temp Pulse Resp BP Pulse Ox 09/02/20 08:00 98.4 F 59 20 123/66 99 09/02/20 03:48 98.9 F 62 16 114/62 99 09/01/20 23:55 99 F 72 16 127/63 99 Anesthesia: General Endotracheal-GETA Mental Status: Awake Pain Control: Satisfactory Nausea/Vomiting: None Hydration: Adequate Anesthesia-Related Issues: No Anes. Related Issues
--- NOTE | 2020-09-02 10:09 | MHC.CM.PN ---
NURSE ASSOCIATE PROFESSOR OF SURGERY NOTE ELECTRONIC MEDICAL RECORD REVIEWED ALONG WITH CASE DISCUSSED WITH STAFF NURSE AND BARIATRIC SURGEON. MET WITH PATIENT AND EXPLAINED THE ROLE OF THE NURSE SECURITIES LENDING TRADER IN THE TRANSITION OF DISCHARGE FROM THE HOSPITAL TO HOME. PATIENT CHIKIS A S/P CAROL, PATIENT LIVES WITH HER AND SON SHE IS ACTIVE AND INDEPENDENT IN ALL ADLS AND MOBILITY. 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 DISCHARGE PLAN HOME WITH NO SERVICES PATIENT TO CALL HER PCP AT THE [facility] IN [facility] SHE WILL CALL FOR POST HOSPITAL DISCHARGE BARIATRIC SURGICAL FOLLOW UP PER DISCHARGE INSTRUCTIONS TRANSPORTATION FAMILY
== END 2020-09-02 11:13 | disposition home or self-care (01) | DRG 403 ==
LOC: HO.SSSA 09:22 → HO.S3 10:53
PROVIDERS: Physician Assistant; Admitting Provider Surgery; Visit Provider Surgery
PROC: 0DB64Z3 Excision of Stomach, Percutaneous Endoscopic Approach, Vertical (ICD-10-PCS; CPT 43845; principal; 2020-09-01 07:30)
DX: E66.01 Morbid (severe) obesity due to excess calories (principal); K44.9 Diaphragmatic hernia without obstruction or gangrene; Z68.34 Body mass index [BMI] 34.0-34.9, adult; Z88.6 Allergy status to analgesic agent; Z20.828 Contact with and (suspected) exposure to other viral communicable diseases; Z79.899 Other long term (current) drug therapy
CPT/HCPCS: 36415; 80048; 85025; 86850; 86900; 86901; 87635; 88307; 88342; C1776; J0131; J1100; J1170; J2250; J2405; J2765; J3010

== ENCOUNTER → 2020-09-17 09:26 | Outpatient (BNVA) | payer OTHER, SELFPAY | PROVIDERS: PCP Plastic Surgery; Visit Provider Surgery | DX: E66.9 Obesity, unspecified (principal); Z90.3 Acquired absence of stomach [part of] | CPT/HCPCS: 99212 ==

== ENCOUNTER → 2020-10-01 14:58 | Outpatient (BNVA) | payer OTHER, SELFPAY | PROVIDERS: PCP Plastic Surgery; Visit Provider Physician Assistant | DX: K21.9 Gastro-esophageal reflux disease without esophagitis (principal); Z90.3 Acquired absence of stomach [part of]; Z98.84 Bariatric surgery status | CPT/HCPCS: 99212 ==

== ENCOUNTER → 2020-10-22 15:29 | Outpatient (BNVA) | payer OTHER, SELFPAY | PROVIDERS: PCP Plastic Surgery; Visit Provider Surgery | DX: E66.3 Overweight (principal); Z68.28 Body mass index [BMI] 28.0-28.9, adult | CPT/HCPCS: 99212 ==

== ENCOUNTER → 2020-11-02 09:29 | Outpatient (BNVA) | payer OTHER, SELFPAY | PROVIDERS: PCP Plastic Surgery; Visit Provider Dietitian, Registered ==

== ENCOUNTER → 2020-11-16 08:23 | Outpatient (BNVA) | payer OTHER, SELFPAY | PROVIDERS: PCP Plastic Surgery; Visit Provider Surgery | DX: E66.3 Overweight (principal); Z98.84 Bariatric surgery status | CPT/HCPCS: 99212 ==